=== PATIENT | female | born 1975 | race Caucasian/White ===

== ENCOUNTER 2017-03-13 08:40 | Outpatient (CLI) | payer OTHER ==
[2014-04-10 07:44] VITALS: BP 110/68
== END 2017-03-13 08:42 ==
LOC: LAB 08:40
PROVIDERS: ATTEND Family Medicine
DX: R60.0 Localized edema (principal)
CPT/HCPCS: 36415; 84443

== ENCOUNTER 2018-03-04 16:44 | Outpatient (CLI) | payer OTHER ==
[2014-04-10 07:44] VITALS: BP 110/68
[2018-03-04 17:00] LABS: BASOPHILS % 0.6 (0.0-1.5); EOSINOPHILS % 3.5 % (0.0-6.8); MEAN CORPUSCULAR HEMOGLOBIN 26.9 pg (28.0-34.0); MEAN CORPUSCULAR VOLUME 85.6 fl (80.0-100.0); NEUTROPHILS # 3.4 # k/uL (1.4-7.7)
--- NOTE | 2018-03-04 17:26 | Diagnostic Imaging Report ---
[facility] [id number] [facility].[address] [id number] Report Submission Date: Mar 04, 2018 5:11:30 PM CDT Patient Study Name: DAVID DE LEON Date: Mar 04, 2018 4:54:20 PM CDT Modality Type: DX Gender: F Description: LOWER EXTREMITY : 73 Institution: [facility] Physician: GUSTAVO BAUMANN Left calcaneus History: Heel pain Two views of the left calcaneus demonstrate no osseous abnormality and no heel spur. Impression: No osseous abnormality. Electronically signed on Mar 04, 2018 5:11:30 PM CDT by: Katherine MALDONADO
[2018-03-04 17:27] LABS: eGFR (African) > 60; eGFR (Non-African) > 60
== END 2018-03-04 16:46 ==
LOC: LAB 16:44
PROVIDERS: ATTEND Physician Assistant
DX: M79.672 Pain in left foot (principal); R53.83 Other fatigue
CPT/HCPCS: 36415; 73650; 80053; 84443; 85025